=== PATIENT | female | born 1965 | race Caucasian/White ===

== ENCOUNTER 2020-02-21 17:22 | Emergency (ER) | payer BC ==
[~2020-02-21] VITALS: Ht 157.5 cm; Wt 72.6 kg
[2020-02-21 17:41] VITALS: Ht 157.5 cm; Wt 72.6 kg
[2020-02-21 18:51] VITALS: BP 138/93
== END 2020-02-21 18:51 | disposition home or self-care (01) ==
LOC: ED 17:22
DX: M54.6 Pain in thoracic spine (principal); M25.511 Pain in right shoulder